=== PATIENT | male | born 1975 | race Caucasian/White ===

== ENCOUNTER 2017-01-09 11:29 | Emergency (ER) | payer OTHER ==
[~2017-01-09 11:29] MED LIST: FLEXERIL10 MG PO; IBUPROFEN800 MG PO; MEDROL4 MG/DOSE- PO; NO MEDICATIONS; PREDNISONE PO; ULTRAM PO
== END 2017-01-09 12:50 | disposition home or self-care (01) ==
LOC: SED 11:29
DX: H10.021 Other mucopurulent conjunctivitis, right eye (principal)
CPT/HCPCS: 99283